=== PATIENT | male | born 1955 | race Caucasian/White ===

== ENCOUNTER 2019-06-08 07:59 | Observation (INO) ==
[2019-06-08] MEDS ORDERED: NS 1,000 ML IV ONE ×2 (08:21)
[2019-06-08] MEDS ORDERED: ZOSYN 4.5 GM in NS 100 ML IV ONE (08:22)
[2019-06-08] MEDS ORDERED: TORADOL IV ONE (08:22)
[2019-06-08] MEDS ORDERED: ZOFRAN IV ONE ×2 (08:22→11:00)
[2019-06-08 08:36] LABS: BASO# 0.02 X1000 (0.0-0.2); BASO% 0.3 % (0.0-0.8); HEMATOCRIT 51.9 % (42.0-52.0); HEMOGLOBIN 17.8 g/dL (14.0-18.0); IMM GRAN# 0.02 X1000 (0.0-0.04); IMM GRAN% 0.3 % (0.0-0.5); LYMPH# 1.14 X1000 (1.2-3.4); LYMPH% 17.7 % (20.5-51.1); MCH 29.6 PG (27-31); MCHC 34.3 g/dL (33-37); MCV 86.4 FL (81-99); MONO# 0.47 X1000 (0.11-0.59); MONO% 7.3 % (1.7-9.3); MPV 9.5 FL (7.4-10.4); NEUT# 4.79 X1000 (1.4-6.5); NEUT% 74.4 % (42.2-75.2); PLT 153 X1000 (130-400); RBC 6.01 XMIL (4.7-6.1); RDW 13.6 % (11.5-14.5); WBC 6.44 X1000 (4.8-10.8)
[2019-06-08 08:50] LABS: INR 1.16; PROTIME 15.4 Seconds (11.0-16.0)
[2019-06-08 08:52] LABS: AGAP 16; ALBUMIN 3.9 g/dL (3.5-5.0); ALKALINE PHOSPHATASE 66 U/L (32-122); BUN 23 mg/dL (8-22); CALCIUM 8.6 mg/dL (8.8-10.2); CHLORIDE 94 mmol/L (98-107); COSMO 267; CREATININE 1.1 mg/dL (0.7-1.2); ESTIMATED GFR > 60; GLUCOSE 107 mg/dL (70-104); GOT 38 U/L (10-34); GPT 29 U/L (10-44); SODIUM 131 mmol/L (136-145); TCO2 21 mmol/L (25-35)
[2019-06-08 08:52] LABS: BE -3.6 mmoll (-3.0-3.0); BLOOD TYPE ARTERIAL; METHB 1.1 % (0.0-1.5); O2(CT) 24.7 mL/dL (15.0-23.0); O2HB 93.6 % (95.0-99.0); PCO2(98.6) 25 mmHg (35-45); PO2(98.6) 73 mmHg (60-100); SAMPLE BLOOD; SAO2 96.6 % (95.0-100.0); pH(98.6) 7.46 (7.35-7.45)
[2019-06-08 08:56] LABS: ALLEN TEST YES; MODALITY ROOM AIR; THB 18.8 g/dL (11.5-17.4)
[2019-06-08 08:58] LABS: INFLUENZA A POSITIVE (NEGATIVE); INFLUENZA B NEGATIVE (NEGATIVE)
[2019-06-08 09:02] LABS: CK PROFILE 208 U/L (24-204)
[2019-06-08 09:24] LABS: CK INDEX 1.2 (0.0-2.5); CK-MB 2.52 ng/mL (0.0-5.0)
--- NOTE | 2019-06-08 09:28 | Diag Imaging Result Doc PS360 ---
EXAM: CHEST-1 VIEW - 06/08/2019 HISTORY: cough, fever TECHNIQUE: One view chest COMPARISON: 12/12/2018 FINDINGS: Heart size appears within normal limits and stable. There is mild basilar scarring. The lungs appear to be clear of acute changes. There is no pleural effusion or pneumothorax identified. IMPRESSION: No evidence of acute disease. Electronically signed by Fady Schreiber 06/08/2019 9:26 AM
--- NOTE | 2019-06-08 09:41 | EKG Report ---
Test Performed on : 06/08/2019 08:54:54 AM Test Reason : weakness Blood Pressure : / mmHG Vent. Rate : 107 BPM Atrial Rate : 375 BPM P-R Int : 000 ms QRS Dur : 164 ms QT Int : 332 ms P-R-T Axes : 000 -11 139 degrees QTc Int : 443 ms Atrial fibrillation. with rapid ventricular response. with premature ventricular or aberrantly conduc judy complexes. Left bundle branch block Abnormal ECG When compared with ECG of 23-MAR-2018 17:18, Previous ECG has undetermined rhythm, needs review Nonspecific T wave abnormality now evident in Inferior leads Confirmed by Asif Thacker MD ([id number]) on 06/09/2019 7:33:15 AM
--- NOTE | 2019-06-08 10:17 | Diag Imaging Result Doc PS360 ---
EXAM: CT ABD/PELVIS W/IV CONT ONLY - 06/08/2019 HISTORY: colitis TECHNIQUE: CT abdomen/pelvis with intravenous contrast COMPARISON: None. FINDINGS: There are no substantial abnormalities of the liver, spleen, or adrenal glands identified. There is apparent wall thickening along the duodenum, which may relate to duodenitis. Part of this abuts the pancreatic head, but the pancreas itself shows no definite inflammation. Part of this also abuts the gallbladder, but the gallbladder shows no calcified gallstones or discrete inflammation. There is no extraluminal gas collection identified. There is no evidence of bowel obstruction. There is retained fluid in stomach and small bowel, some which appears to have mildly thickened cabral, suggesting enteritis. What appears to represent the appendix is unremarkable. There is a tiny fat-containing umbilical hernia. There is diverticulosis at the descending and sigmoid colon. There is no indication of diverticulitis. There is no substantial colon wall thickening identified. There is no free air, free fluid, or abscess identified. There are lumbar spine degenerative changes noted. There are some atherosclerotic calcifications also noted. IMPRESSION: Apparent duodenitis, as well as more generalized gastroenterocolitis. No evidence of extraluminal gas or abscess. Colonic diverticulosis. No evidence of diverticulitis. This exam was performed using automated exposure control, adjustment of mA or kV according to patient size, and/or use of iterative reconstruction technique. Electronically signed by Fady Schreiber 06/08/2019 10:14 AM
[2019-06-08] MEDS ORDERED: MORPHINE IV ONE (10:59)
--- NOTE | 2019-06-08 11:11 | PROVIDER DOCUMENTATION ---
This chart was entered by Keke Evans Scribe, acting as scribe for Fernando Verma MD. HPI-General Adult - General Chief Complaint: Flu Symptoms Stated Complaint: FLU SX Time Seen by Provider: 06/08/19 08:15 Source: patient Allergies/Adverse Reactions: Patient Allergies Allergy/AdvReac Type Severity Reaction Status Date / Time No Known Allergies Allergy Verified 12/12/18 03:24 Home Medications: Home Medication List Medication Instructions Recorded Confirmed Last Taken Type Apixaban [Eliquis] 5 mg PO BID #60 tab 01/30/18 Unknown Rx Benzonatate [Tessalon Perle] 100 mg PO BID PRN #10 cap 01/30/18 Unknown Rx Amoxicillin 875 mg PO BID #20 tab 12/12/18 Unknown Rx Prednisone 10 mg PO BID #14 tab 12/12/18 Unknown Rx - History of Present Illness -Gen Adult Nature of Presenting Problems: Patient is a 64 year old male who presents with flu like symptoms. States symptoms of abdominal pain, cough, weakness, diarrhea, shortness of breath, decreased appetite, and malaise. Reports symptoms have been present for 4 days. States his grandchildren have the flu currently. Denies having a flu shot. Location of Pain/Injury: reports: none Pain Radiation: reports: no radiation Quality of Pain: reports: none Severity: reports: mild Onset/Duration: reports: 4 days ago Timing: reports: still present Context/Activities at Onset: reports: light activity Associated Symptoms: reports: cough, diarrhea, loss of appetite, malaise, shortness of breath, weakness, other (abdominal pain) Similar Symptoms Previously?: Yes Recently seen or treated by another doctor?: No Review of Systems - Adult - REVIEW OF SYSTEMS - ADULT Constitutional: reports: see HPI, other (malaise). denies: chills, fever Eyes: reports: no symptoms reported Ears, Nose, Mouth & Throat: reports: no symptoms reported Cardiovascular: reports: no symptoms reported Respiratory: reports: see HPI, cough, shortness of breath. denies: wheezing Gastrointestinal: reports: see HPI, abdominal pain, diarrhea, poor appetite. denies: nausea, vomiting Genitourinary: reports: no symptoms reported Musculoskeletal: reports: see HPI, muscle weakness. denies: back pain, neck pain Integumentary: reports: no symptoms reported Neurological: reports: no symptoms reported Psychiatric: reports: no symptoms reported Endocrine: reports: no symptoms reported Hematologic/Lymphatic: reports: no symptoms reported Allergic/Immunologic: reports: no symptoms reported All Other Systems: Reviewed and Negative Past History - Adult - PAST MEDICAL HISTORY-ADULT Review of Records: reports: Old Records Reviewed, Nursing Assessment Review, Medications Reviewed, Social history reviewed & non-contributory. Major Childhood Illnesses: reports: denies history Cardiovascular: reports: A-Fib. denies: CAD, CHF, HTN, heart valve problem, AR, palpitations, pacemaker, PVD Respiratory: reports: denies history Gastrointestinal: reports: denies history Obstetrical/Gynecological: reports: denies history Genitourinary: reports: denies history Musculoskeletal: reports: denies history Neurological: reports: denies history Psychiatric: reports: denies history Endocrine/Immune: reports: denies history. denies: Diabetes, Leukemia Other Conditions: reports: denies history - PRIOR SURGERIES/PROCEDURES Surgical/Procedure History: reports: orthopedic (extremity). denies: recent surgery - IMMUNIZATION STATUS Childhood Immunizations: See Nurse Assessment Flu Vaccine: See Nurse Assessment - FAMILY HISTORY Family History: reviewed, not pertinent - SOCIAL HISTORY Smoking: cigarettes (former) Substance Use: marijuana Physical Exam-General - PHYSICAL EXAM-ADULT Initial Vital Signs Reviewed: Yes - CONSTITUTIONAL General Appearance: alert, no apparent distress, other (ill appearing). negative: anxious - HEAD, EARS, NOSE, MOUTH & THROAT HENMT: normocephalic/atraumatic, moist mucous membranes. negative: angioedema - RESPIRATORY Respiratory: chest non-tender, lungs clear, normal breath sounds. negative: wheezing - CARDIOVASCULAR Cardiovascular: regular rate, rhythm, no gallop, no murmur. negative: tachycardia - GASTROINTESTINAL (ABDOMEN) Abdominal Exam: normal bowel sounds, soft, tenderness (generalized). negative: distended - MUSCULOSKELETAL Extremity: non-tender, normal inspection. negative: deformity - SKIN Integumentary: normal turgor, warm/dry, pallor. negative: diaphoresis - NEUROLOGIC Neurologic: grossly normal. negative: aphasia, facial droop - PSYCHIATRIC Psych/Mental Status: normal mood/affect, normal thought content, normal thought process, oriented x 3. negative: anxious Progress - PLAN OF CARE/RESULTS Progress/Plan/Lab Results: Vital Signs - 8 hr 06/08/19 08:08 01/31/20 09:00 Temperature 97.3 F L Pulse Rate 73 99 H Respiratory Rate 19 20 Blood Pressure 91/67 129/76 O2 Sat by Pulse Oximetry 95 Laboratory Results - last 24 hr 06/08/19 06/08/19 06/08/19 08:20 08:20 08:20 WBC 6.44 RBC 6.01 Hgb 17.8 Hct 51.9 MCV 86.4 MCH 29.6 MCHC 34.3 RDW Std Deviation 13.6 Plt Count 153 MPV 9.5 Immature Gran % (Auto) 0.3 Neut % (Auto) 74.4 Lymph % (Auto) 17.7 L [place] % (Auto) 7.3 Eos % (Auto) 0.0 Baso % (Auto) 0.3 Immature Gran # (Auto) 0.02 Neut # (Auto) 4.79 Lymph # (Auto) 1.14 L [place] # (Auto) 0.47 Eos # (Auto) 0.00 Baso # (Auto) 0.02 PT 15.4 INR 1.16 PTT (Actin FS) 33.0 Specimen Type Sample Site pH pCO2 pO2 HCO3 Base Excess Oxyhemoglobin ABG O2 Sat (Calculated) ABG O2 Saturation ABG Carboxyhemoglobin ABG Methemoglobin Kal Test A-a O2 Difference Total Hemoglobin Lactate Blood Gas Modality FiO2 % Sodium 131 L Potassium 4.0 Chloride 94 L Carbon Dioxide 21 L Anion Gap 16 BUN 23 H Creatinine 1.1 Estimated GFR/1.73 m2 > 60 BUN/Creatinine Ratio 21 Glucose 107 H Calculated Osmolality 267 Calcium 8.6 L Total Bilirubin 0.70 AST 38 H ALT 29 Alkaline Phosphatase 66 Creatine Kinase 208 H Creatine Kinase Index 1.2 CK-MB (CK-2) 2.52 Troponin T High Sens Tlb-Y-Voikdghnuyl Pept Total Protein 7.0 Albumin 3.9 Globulin 3.0 Albumin/Globulin Ratio 1.0 Plasma Lactate Influenza A (Rapid) Influenza B (Rapid) 06/08/19 06/08/19 06/08/19 08:20 08:20 08:20 WBC RBC Hgb Hct MCV MCH MCHC RDW Std Deviation Plt Count MPV Immature Gran % (Auto) Neut % (Auto) Lymph % (Auto) [place] % (Auto) Eos % (Auto) Baso % (Auto) Immature Gran # (Auto) Neut # (Auto) Lymph # (Auto) [place] # (Auto) Eos # (Auto) Baso # (Auto) PT INR PTT (Actin FS) Specimen Type Sample Site pH pCO2 pO2 HCO3 Base Excess Oxyhemoglobin ABG O2 Sat (Calculated) ABG O2 Saturation ABG Carboxyhemoglobin ABG Methemoglobin Kal Test A-a O2 Difference Total Hemoglobin Lactate Blood Gas Modality FiO2 % Sodium Potassium Chloride Carbon Dioxide Anion Gap BUN Creatinine Estimated GFR/1.73 m2 BUN/Creatinine Ratio Glucose Calculated Osmolality Calcium Total Bilirubin AST ALT Alkaline Phosphatase Creatine Kinase Creatine Kinase Index CK-MB (CK-2) Troponin T High Sens 14 Kaf-M-Gzuxgmyhldd Pept 1242 H Total Protein Albumin Globulin Albumin/Globulin Ratio Plasma Lactate 2.0 Influenza A (Rapid) Influenza B (Rapid) 06/08/19 06/08/19 08:21 08:39 WBC RBC Hgb Hct MCV MCH MCHC RDW Std Deviation Plt Count MPV Immature Gran % (Auto) Neut % (Auto) Lymph % (Auto) [place] % (Auto) Eos % (Auto) Baso % (Auto) Immature Gran # (Auto) Neut # (Auto) Lymph # (Auto) [place] # (Auto) Eos # (Auto) Baso # (Auto) PT INR PTT (Actin FS) Specimen Type ARTERIAL Sample Site L RADIAL pH 7.46 H pCO2 25 L pO2 73 HCO3 22.0 Base Excess -3.6 L Oxyhemoglobin 93.6 L ABG O2 Sat (Calculated) 24.7 H ABG O2 Saturation 96.6 ABG Carboxyhemoglobin 1.90 ABG Methemoglobin 1.1 Kal Test YES A-a O2 Difference 45.0 Total Hemoglobin 18.8 H Lactate 1.10 Blood Gas Modality ROOM AIR FiO2 % 21.0 Sodium Potassium Chloride Carbon Dioxide Anion Gap BUN Creatinine Estimated GFR/1.73 m2 BUN/Creatinine Ratio Glucose Calculated Osmolality Calcium Total Bilirubin AST ALT Alkaline Phosphatase Creatine Kinase Creatine Kinase Index CK-MB (CK-2) Troponin T High Sens Abn-T-Zigywfmrygs Pept Total Protein Albumin Globulin Albumin/Globulin Ratio Plasma Lactate Influenza A (Rapid) POSITIVE A Influenza B (Rapid) NEGATIVE Orders Category Date Time Status Cardiac Monitoring DIRECTED Care 06/08/19 08:20 Completed IV Insertion ORDERED Care 06/08/19 08:20 Completed Nursing- Obtain EKG once Care 06/08/19 08:21 Active CHEST-1 VIEW [RAD] Stat Exams 06/08/19 08:[address] ABD/PELVIS W/IV CONT ONLY [CT] Stat Exams 06/08/19 08:22 Taken ABG [RESP] Routine Lab 06/08/19 08:39 Completed BLOOD CULTURE [BLDCUL] Stat Lab 06/08/19 08:24 Ordered C DIFF TOXIN [STOOL] Stat Lab 06/08/19 08:21 Uncollected CBC WITH DIFF [HEME] Stat Lab 06/08/19 08:20 Completed CK PROFILE [SP CHEM] Stat Lab 06/08/19 08:20 Completed COMPREHENSIVE METABOLIC PANEL [CHEM] Stat Lab 06/08/19 08:[address] Stat Lab 06/08/19 08:21 Completed LACTATE, PLASMA [CHEM] Lab 06/08/19 11:30 Uncollected LACTATE, PLASMA [CHEM] Lab 06/08/19 14:30 Uncollected LACTATE, PLASMA [CHEM] Q3H Lab 06/08/19 08:20 Completed OCCULT BLOOD SCREEN STOOL PL Stat Lab 06/08/19 08:21 Ordered PRO B-NATRIURETIC PEPTIDE Stat Lab 06/08/19 08:20 Completed PROTIME WITH INR [COAG] Stat Lab 06/08/19 08:20 Completed PTT [COAG] Stat Lab 06/08/19 08:20 Completed STOOL CULTURE [RM] Stat Lab 06/08/19 08:21 Uncollected TROPONIN T HIGH SENSITIVITY Stat Lab 06/08/19 08:20 Completed URINALYSIS W/POSS RFLX CULT [URINALYSIS] Stat Lab 06/08/19 08:20 Uncollected 0.9% Sodium Chloride Inj [Ns] 1,000 ml Med 06/08/19 08:21 Discontinued IV 999 mls/hr 0.9% Sodium Chloride Inj [Ns] 1,000 ml Med 06/08/19 08:21 Discontinued IV 999 mls/hr Ketorolac [Toradol] Med 06/08/19 08:22 Discontinued 15 mg IV NOW ONE Ondansetron [Zofran] Med 06/08/19 08:22 Discontinued 4 mg IV NOW ONE Piperacillin/Tazobactam [Zosyn] 4.5 gm Med 06/08/19 08:22 Discontinued 0.9% Sodium Chloride Inj [Ns] 100 ml IV NOW Oxygen Device Stat Oth 06/08/19 08:20 Active EKG [EKG] Stat Ther 06/08/19 08:21 Draft Result Diagrams: 06/08/19 08:20 06/08/19 08:20 - REASSESSMENT Reassessment #1 Time Reassessed: 10:57 Status: improving (Given IVF bolus, no longer hypotensive and tachycardic. Still in AFIB. Patient has had flu symptoms x 4 days, so will hold off on Tamiflu, has abnormal CT findings of duodenitis, so will treat with zosyn and IVF and pain meds. Will give morphine for pain now as he is still hurting. Although he shows signs of septic shock, he does not need pressors as he is no longer hypotensive.) - EKG 1 Time of EKG reading by physician:: 09:00 EKG Read and Signed by:: Fernando Verma EKG Interpretation (*Must complete 3 of following elements*): Abnormal Rate: 107 Rhythm: A Fib with RVR [place]: normal QRS: LBB Comments: artifact present - XRAY 1 XRAY Study: Chest Impression: See EMR Report ( EXAM: CHEST-1 VIEW - 06/08/2019 HISTORY: cough, fever TECHNIQUE: One view chest COMPARISON: 12/12/2018 FINDINGS: Heart size appears within normal limits and stable. There is mild basilar scarring. The lungs appear to be clear of acute changes. There is no pleural effusion or pneumothorax identified. IMPRESSION: No evidence of acute disease. Electronically signed by Fady Schreiber 06/08/2019 9:26 AM 06/08/19 09 Interpreting Physician: Fady Schreiber MD Dictated Date/Time: 06/08/19 0924 cc: Fernando Verma MD; Cheryl Leonard MD) - CT/MRI 1 CT Study: Abdomen, Pelvis Impression: See EMR Report ( EXAM: CT ABD/PELVIS W/IV CONT ONLY - 06/08/2019 HISTORY: colitis TECHNIQUE: CT abdomen/pelvis with intravenous contrast COMPARISON: None. FINDINGS: There are no substantial abnormalities of the liver, spleen, or adrenal glands identified. There is apparent wall thickening along the duodenum, which may relate to duodenitis. Part of this abuts the pancreatic head, but the pancreas itself shows no definite inflammation. Part of this also abuts the gallbladder, but the gallbladder shows no calcified gallstones or discrete inflammation. There is no extraluminal gas collection identified. There is no evidence of bowel obstruction. There is retained fluid in stomach and small bowel, some which appears to have mildly thickened cabral, suggesting enteritis. What appears to represent the appendix is unremarkable. There is a tiny fat-containing umbilical hernia. There is diverticulosis at the descending and sigmoid colon. There is no indication of diverticulitis. There is no substantial colon wall thickening identified. There is no free air, free fluid, or abscess identified. There are lumbar spine degenerative jenkins ges noted. There are some atherosclerotic calcifications also noted. IMPRESSION: Apparent duodenitis, as well as more generalized gastroenterocolitis. No evidence of extraluminal gas or abscess. Colonic diverticulosis. No evidence of diverticulitis. This exam was performed using automated exposure control, adjustment of mA or kV according to patient size, and/or use of iterative reconstruction technique. Electronically signed by Fady Schreiber 06/08/2019 10:14 AM 06/08/19 1014 Interpreting Physician: Fady Schreiber MD Dictated Date/Time: 06/08/19 1005 cc: Fernando Verma MD; Cheryl Leonard MD) - CONSULTS/PCP/HOSPITALIST Notification #1 *Consult/PCP/Hospitalist*: Patrick paged [phone] Time Discussed: 11:09 Reason/Comments: Dr. Verma consulted with Dr. Nguyen about patient Consult Disposition: Will see in ED, Admit Departure - Departure Date of Disposition Decision: 06/08/19 Time of Disposition Decision: 10:57 DIAGNOSIS: Atrial fibrillation with RVR, Septic shock, Duodenitis without hemorrhage, I nfluenza A Disposition: ADMITTED INPATIENT 09 Certified Medical Emergency: Emergent Condition: Fair Referrals and Follow-Ups: Cheryl Leonard MD [Primary Care Provider] - - Critical Care Note This patient required my direct & personal management of CC.: Yes Total Time (mins): 50 Critical Care Statement: This patient required my direct personal management to treat or rule out processes, the absence of which, could potentiallly result in sudden, clinically significant life or limb threatening deterioration. Attestation - Physician/ JESSICA Attestation Patient care was provided by Advanced Practice Provider:: No The physician spent face to face time with patient:: Yes Advanced Practice Provider documentation review:: Supervising physician onsite and consulted in the evaluation and care of this patient. The physician did have a face to face encounter with the patient. This chart was documented by the indicated scribe, (Keke Evans, Dar[place]) and accurately reflects the services I performed and decisions made by me, Fernando Verma MD, as attested by the provider's signature.
[2019-06-08 12:51] LABS: URINE SOURCE CLEAN CATCH
[2019-06-08 12:56] LABS: BILIRUBIN URINE NEGATIVE (NEGATIVE); BLOOD URINE TRACE (NEGATIVE); COLOR YELLOW; GLUCOSE URINE NEGATIVE (NEGATIVE); KETONE URINE NEGATIVE (NEGATIVE); LEUKOCYTES URINE NEGATIVE (NEGATIVE); NITRITE URINE NEGATIVE (NEGATIVE); PH URINE 6.5; PROTEIN URINE 300 mg/dL (NEGATIVE); TURBIDITY URINE CLEAR (CLEAR); UROBILINOGEN URINE NORMAL (NORMAL)
[2019-06-08 12:57] LABS: UR EPITHELIAL CELLS <10 /HPF (<10); URINE BACTERIA NEGATIVE /HPF; URINE RBC <10 /HPF (<10); URINE WBC <10 /HPF (<10)
--- NOTE | 2019-06-08 15:24 | HISTORY AND PHYSICAL ---
PRIMARY CARE PHYSICIAN: Dr. Cheryl Leonard. CHIEF COMPLAINT: A 4-day history of weakness, shortness of breath, decreased appetite, malaise, cough, diarrhea, stating that his grandchildren had the flu currently and did not receive the flu shot. HISTORY OF PRESENTING ILLNESS: This is a 64-year-old male who presented to [facility] ER with complaints of a 4-day history of abdominal pain, cough, weakness, diarrhea, shortness of breath, decreased appetite and malaise. States his grandchildren and had the flu currently and he did not receive the flu shot. Workup showed influenza A that was positive, B was negative. His sodium was 131 with chloride of 94. CT of the abdomen and pelvis showed an apparent duodenitis as well as more generalized gastroenterocolitis, but no evidence of extraluminal gas or abscesses. Chest x-ray showed no evidence of acute disease, so he will be admitted for further evaluation and treatment. PAST MEDICAL HISTORY: Atrial fibrillation. PAST SURGICAL HISTORY: An orthopedic surgery. FAMILY HISTORY: Reviewed and noncontributory. SOCIAL HISTORY: Currently lives with family. Denies any tobacco or alcohol use and uses marijuana occasionally. LABORATORY DATA: Showed a white blood cell count of 6.44, hemoglobin 17.8, hematocrit 51.9, platelets 153,000. PT and INR of 15.4 and 1.16. ABG showed a pH of 7.46, pCO2 of 25, PO2 73, bicarb 22.1. This was on room air. Sodium 131, potassium 4, chloride 94, CO2 21, BUN of 23, creatinine 1.1, glucose 107. Creatine kinase of 208, CK-MB of 2.52 with a troponin of 14. ProBNP was 1242 with a plasma lactate of 2. Urinalysis was negative. Influenza A was positive. Influenza B was negative. IMAGING: Chest x-ray showed no evidence of acute disease. EKG showed atrial fibrillation with rapid ventricular response at 107. Abdomen and pelvic CT showed an apparent duodenitis as well as a more generalized gastroenterocolitis with no evidence of extraluminal gas or abscess. REVIEW OF SYSTEMS: He denied any fever. He had some chills, decreased appetite, weakness, malaise, shortness of breath, cough, some abdominal pain, diarrhea. Denied any burning or hurting with urination. PHYSICAL EXAMINATION: VITAL SIGNS: On arrival, he had a temperature of 97.3 degrees, pulse 73, respirations 18, blood pressure was 91/67, saturating 95% on room air. Blood pressure now up to 129/76. GENERAL: This is a 64-year-old male lying in the bed, answers questions appropriately. HEENT: Normocephalic, atraumatic. Normal ENT inspection. Oropharynx and nares are clear. Eyes, pupils are equal, round, and reactive to light and accommodation. Extraocular movements are intact. NECK: Normal inspection, normal range of motion. LUNGS: Clear to auscultation bilaterally with equal lung expansion and chest wall movement. HEART: Irregular rate and rhythm but no murmurs, rubs, or gallops. ABDOMEN: Soft. Tenderness that was generalized throughout abdomen. Bowel sounds are present x4 quadrants. MUSCULOSKELETAL: He had 5/5 strength x4 extremities. NEUROLOGICAL: The cranial nerves 2-12 appear grossly intact. ASSESSMENT: 1. Influenza A positive. 2. Gastroenterocolitis. 3. Hyponatremia. 4. Atrial fibrillation, history of. PLAN: He will be admitted to the medical unit, placed on telemetry, droplet precaution isolation. Update and confirm home medications. Healthy heart diet. We will place on Zosyn 3.375 g IV q.6, normal saline 75 mL an hour, Zofran 4 mg IV q.4 hours p.r.n. We are going to check a C difficile toxin stool and occult blood for stool and stool culture. Blood cultures x2 are pending. We will not start him on Tamiflu as he is outside of the realm of presentation to start that. We will treat any symptoms that arise. Further orders after seen by attending. Dictated by RAPHAEL Becerril for Ancelmo Nguyen MD cc: RAPHAEL Becerril MD Lindsay Smith
[2019-06-08] MEDS ORDERED: ZOFRAN IV PRN (15:39)
[2019-06-08] MEDS ORDERED: TYLENOL PO PRN (15:39)
[2019-06-08] MEDS: ZOSYN 3.375 GM in NS 50 ML IV SCH ×2 (17:07→21:23)
[2019-06-08] MEDS: NS 1,000 ML IV SCH (17:07)
[2019-06-08] MEDS ORDERED: TESSALON PO PRN (19:42)
--- NOTE | 2019-06-08 19:57 | HISTORY AND PHYSICAL ---
ADDENDUM: Patient seen and examined by myself. Full note dictated and discussed with nurse practitioner. Patient presented to the hospital with a 4-day history of weakness, decreased appetite and malaise. Was diagnosed with influenza A positive and gastroenterocolitis. We are going to admit to the hospital, IV Zofran, antibiotics, fluids, and will follow. Given that she is 4 days post onset of flu, we will not start Tamiflu. However, we will continue to follow. cc: Ancelmo Nguyen MD
[2019-06-08] MEDS ORDERED: AMBIEN PO PRN (21:08)
[2019-06-09] MEDS: ZOSYN 3.375 GM in NS 50 ML IV SCH ×4 (04:26→21:50)
[2019-06-09 06:26] LABS: AGAP 14; BUN 18 mg/dL (8-22); CALCIUM 8.1 mg/dL (8.8-10.2); CHLORIDE 100 mmol/L (98-107); COSMO 268; CREATININE 0.8 mg/dL (0.7-1.2); ESTIMATED GFR > 60; GLUCOSE 86 mg/dL (70-104); POTASSIUM 3.8 mmol/L (3.5-5.1); SODIUM 133 mmol/L (136-145); TCO2 19 mmol/L (25-35)
[2019-06-09 06:30] LABS: BASO# 0.04 X1000 (0.0-0.2); BASO% 0.8 % (0.0-0.8); HEMATOCRIT 47.9 % (42.0-52.0); HEMOGLOBIN 16.4 g/dL (14.0-18.0); IMM GRAN# 0.02 X1000 (0.0-0.04); IMM GRAN% 0.4 % (0.0-0.5); LYMPH# 0.97 X1000 (1.2-3.4); MCH 30.4 PG (27-31); MCHC 34.2 g/dL (33-37); MCV 88.9 FL (81-99); MONO# 0.33 X1000 (0.11-0.59); MONO% 6.8 % (1.7-9.3); MPV 9.7 FL (7.4-10.4); NEUT# 3.49 X1000 (1.4-6.5); PLT 127 X1000 (130-400); RBC 5.39 XMIL (4.7-6.1); RDW 13.7 % (11.5-14.5); WBC 4.85 X1000 (4.8-10.8)
[2019-06-09 07:36] LABS: LYMPHS 12 % (21-51); MONO 4 % (1-9); SEGS 84 % (42-75)
[2019-06-09] MEDS: NS 1,000 ML IV SCH ×3 (09:03→22:27)
[2019-06-09 09:46] LABS: OCCULT BLOOD 1 POSITIVE (NEGATIVE)
--- NOTE | 2019-06-09 16:45 | PROGRESS NOTE ---
DATE: 06/09/2019 SUBJECTIVE: Patient without any new complaints. He states that overall he is feeling a little bit better, less short of breath. Denies any cough or congestion. OBJECTIVE: T-max 100.9 degrees, T current 98.8, pulse 82, respiratory 20, and BP 121/68.General: Patient is an overweight male who is currently in no respiratory distress. He does appear to be feeling better. Color is improving. HEENT: Normocephalic. Neck: Supple. CV: Regular rate. Lungs: Chest is clear and nonlabored. Abdomen: Soft. Nondistended. Extremities: Moves all extremities. Neurologic: No changes. ASSESSMENT: 1. Influenza type A positive. 2. Gastroenteritis colitis improving. 3. Hyponatremia. 4. Atrial fibrillation. 5. Febrile illness secondary to his fever and his enterocolitis. PLAN: We will continue patient in the hospital. Continue antibiotics, and will follow. Hopefully, home over the next 1 or 2 days. cc: Ancelmo Nguyen MD
[2019-06-10] MEDS: ZOSYN 3.375 GM in NS 50 ML IV SCH ×2 (04:50→10:35)
[2019-06-10 12:46] VITALS: BP 128/77
--- NOTE | 2019-06-10 20:54 | DISCHARGE SUMMARY ---
ADMISSION DATE: 06/08/2019 DISCHARGE DATE: 06/10/2019 DISCHARGE DIAGNOSES: 1. Febrile illness, resolved. The patient has been afebrile for 48 hours. 2. Influenza type A. 3. Gastroenteritis. 4. Hyponatremia. 5. Atrial fibrillation. CONSULTATIONS: None. PROCEDURES: None. BRIEF HOSPITAL COURSE: The patient is a 64-year-old male who presented to the hospital. Placed on antibiotics, IV fluids. He continued to improve. His febrile illness resolved. On discharge, he is awake, alert. He is tolerating diet without much difficulty. Still having some mild abdominal pain. The patient notes that he is much improved and is asking to go home. DISPOSITION: Patient will be discharged home. Discussed with him to continue a GI soft diet for the next week and increase as tolerated. He will follow up outpatient with primary care of choice. He will continue antibiotics at home, Augmentin for another 5 days. Greater than 30 minutes was spent in total care. cc: Ancelmo Nguyen MD
== END 2019-06-10 14:18 | disposition home or self-care (01) ==
LOC: P.ED 07:59 → P.MEDSURG 08:00 → INTOOBSV 08:00
PROVIDERS: ATTEND Family Medicine